=== PATIENT | male | born 1950 | race Caucasian/White ===

== ENCOUNTER 2024-09-25 10:46 | Emergency (ER) | payer MEDICARE, SELFPAY ==
--- NOTE | ~2024-09-25 | CT_ITS ---
EXAMINATION: CT ABDOMEN PELVIS WITH IV CONTRAST HISTORY: LLQ pain COMPARISON: Comparison is made with the prior examination dated 03/02/2017. TECHNIQUE: CT scan of the abdomen and pelvis was performed following administration of 85 mL Omnipaque 350 using standard departmental protocol. Coronal and sagittal reformatted images were generated and reviewed. Oral contrast material was not administered at the request of the referring physician. This CT exam was performed with one or more of the following dose reduction techniques: automated exposure control, adjustment of the mA and/or kV according to patient size, use of iterative reconstruction technique. DLP: 463 mGy-cm FINDINGS: LOWER CHEST: The visualized lung bases are clear. There is no pleural effusion. CARDIOVASCULATURE: The heart is normal in size. There is no pericardial effusion. LIVER: The liver is normal in size and contour. Again seen are cysts within the liver measuring up to 1.6 cm in size. The hepatic and portal veins are patent. GALLBLADDER / BILE DUCTS: The gallbladder is unremarkable. There is no intra or extrahepatic biliary ductal dilatation. SPLEEN: The spleen is normal in size. No focal splenic lesion is identified. PANCREAS: The pancreas is unremarkable in appearance. ADRENAL GLANDS: Within normal limits. KIDNEYS/RETROPERITONEUM: No renal calculi are identified. There is no hydronephrosis. There are bilateral renal cysts measuring up to 2.9 cm on the right and 5.0 cm on the left. LYMPH NODES: No abdominal or pelvic lymphadenopathy. VASCULATURE: The abdominal aorta demonstrates atherosclerotic calcification, but is normal in caliber. MESENTERY/PERITONEUM: No free fluid. No masses. There is no free intraperitoneal gas. STOMACH: The stomach is collapsed, limiting evaluation. SMALL BOWEL: The small bowel is normal in caliber. COLON: There is diverticulosis of the descending and sigmoid colon. Minimal stranding of the fat adjacent to the mid descending colon is noted (series 3, images 42-43) which is suggestive of diverticulitis. There is no adjacent fluid collection or extraluminal gas. There are foci of fat attenuation adjacent to the descending colon which appear encapsulated, and may represent areas of fat necrosis. APPENDIX: The appendix is surgically absent. URINARY BLADDER/PELVIC ORGANS: The urinary bladder is unremarkable. The prostate is enlarged. BONES / SOFT TISSUES: There are scattered sclerotic foci in the right femur, right iliac bone, T10 vertebral body and sacrum without change. CT/CT abdomen pelvis w IV con IMPRESSION: Findings consistent with mild diverticulitis involving the descending colon as described. Electronically signed by: Juan Dunn MD 09/25/2024 02:46 PM EDT RP
[2024-09-25 11:11] VITALS: BP 175/79; PULSE 108; RESP 20; TEMP 36.8; O2SAT 94; BMI 26.8
--- NOTE | 2024-09-25 11:15 | ED_ITS ---
HPI - General Adult General Chief complaint: Abdominal Pain Stated complaint: Diverticulitis Time Seen by Provider: 09/25/24 12:53 Source: patient and old records reviewed Mode of arrival: ambulatory Limitations: no limitations History of Present Illness ED Provider: AVA TIERNEY narrative: 74 yo male with PMH of uncomplicated diverticulitis, HLD, renal cell carcinoma s/p surgery and XRT here with c/o 2 days of LLQ pain but no n/v/d fevers and no blood stools. He feels he has diverticulitis again. He could not get into his PCP. He responds well to augmentin. MD complaint: abd pain Onset (ago): day(s) (2) Location: abdomen Radiation: non-radiation Severity: moderate Quality: aching Pain Consistency: intermittent Relieving factors: none Exacerbating factors: movement Associated symptoms: denies other symptoms Treatments prior to arrival: none Related Data Previous Rx's ?Medication ?Instructions ?Recorded amoxicillin 500 mg-potassium 1 tab PO BID #19 tabs 09/25/24 clavulanate 125 mg tablet (Augmentin) Allergies Allergy/AdvReac Type Severity Reaction Status Date / Time No Known Allergies Allergy Verified 09/25/24 11:13 [No Known Allergies*] Review of Systems 2 Review of Systems: Constitutional : No Weight loss, No Fever, No Chills ENT/Mouth : No sore throat, No Rhinorrhea Eyes: No Swelling, No Redness Cardiovascular : No Chest Pain, No SOB, No Edema Respiratory : No Cough, No Sputum, No Wheezing Gastrointestinal : no Nausea, no Vomiting, no Diarrhea, positive abdominal Pain, No Hematochezia, No Melena Genitourinary : No Dysuria, No Urinary Frequency, No Hematuria, No Urgency Musculoskeletal : No joint pain, No Myalgias, No Joint Swelling Skin : No Skin Lesions, No rash Neuro : No Weakness, No Numbness, No Dizziness, No Headache All other systems reviewed and are negative. [facility] Past Medical History Attestation statement: The following information was validated with the patient. Source: old records reviewed Medical History (Updated 09/25/24 @ 14:58 by Paige Mederos DO) Renal cell carcinoma Diverticulitis HLD (hyperlipidemia) Social History Social History (Updated 09/25/24 @ 13:15 by Paige Mederos DO) Patient Tobacco Use Status: Tobacco use Unknown Physical Exam ED Vital Signs: Vital Signs - 24 hr 09/25/24 11:11 09/25/24 15:15 Temperature 98.3 F 98.3 F Pulse Rate 108 H 79 Respiratory Rate 20 16 Blood Pressure 175/79 H 150/79 H Pulse Oximetry 94 98 Oxygen Delivery Method Room Air Room Air BMI result Body Mass Index 26.8 Appearance: Alert. Oriented X3. No acute distress. Eyes: Pupils equal, round and reactive to light. ENT: Pharynx normal. Neck: Normal inspection. Neck supple. CVS: Normal heart rate and rhythm. Pulses normal. Respiratory: No respiratory distress. Breath sounds normal. Abdomen: Soft and very mild ttp in LLQ no rebound or guarding Skin: Skin warm and dry. Normal skin color. Normal skin turgor. Extremities: No lower extremity edema. No calf ttp Neuro: Oriented X 3. No motor deficit. No sensory deficit. CN2-12 intact Course Course Course Narrative: RME: 74-year-old male history of high cholesterol and diverticulitis presents to ED for left-sided mid lower abdominal pain with tenderness on palpation. Patient has been treated with Augmentin before for the past for diverticulitis. Patient was sent by primary care provider to be evaluated in the ED. Patient denies any blood in stool fever or chills. Patient denies any chest pain or shortness of breath. Patient has tachy hypertensive probably due to pain but we will do EKG cardiac labs. Medications Administered Discontinued Medications Generic Name Dose Route Start Last Admin Trade Name Freq PRN Reason Stop Dose Admin Amoxicillin/Clavulanate Potassium 500 mg 09/25/24 14:56 09/25/24 15:15 Amoxicillin/Potassium Clav 500 Mg Tablet PO 09/25/24 14:57 500 mg ONCE ONE Administration Lactated Ringer's 1,000 mls @ 999 mls/hr 09/25/24 13:18 09/25/24 15:07 Lr IV 09/25/24 14:18 Infused .Q1H1M ONE Infusion Iohexol 100 ml 09/25/24 14:10 09/25/24 14:10 Iohexol 350 Mg/Ml 100 Ml Infus..Btl IV 09/25/24 14:11 85 ml ONCE ONE Administration Medical Decision Making Medical Decision Making MDM Narrative: 74 yo male with PMH of uncomplicated diverticulitis, HLD, renal cell carcinoma s/p surgery and XRT here with with c/o LLQ pain but no fevers, chills, n/v/d, GIB symptoms, dysuria - at this time given his age and HR slightly elevated though he blames that on hospital anxiety I am going to obtain CT scan to rule out any complications from diverticular disease. Possible constipation/renal colic/mass as well. Differential Diagnosis Differential Diagnoses: The differential diagnosis associated with the presentation includes constipation, diverticular disease, renal colic Admission/Observation Consideration of admission/observation: Escalation of care including admission/observation considered labs reassuring no severe pain can be managed as outpatient with oral abx Lab Data MDM Lab Attestation statement: I reviewed the patient's lab results. 09/25/24 11:27 09/25/24 11:27 Labs: Lab Results 09/25/24 09/25/24 Range/Units 11:27 11:31 WBC 5.0 (4.8-10.8) X10*3/uL RBC 4.04 L (4.60-5.80) X10*6/uL Hgb 12.9 L (14.0-18.0) g/dl Hct 37.5 L (42.0-52.0) % MCV 92.8 (80.0-98.0) fL MCH 31.9 (27.0-33.0) pg MCHC 34.4 (31.0-36.0) g/dl RDW 13.1 (11.0-16.0) % Plt Count 137 L (160-400) X10*3/uL MPV 11.1 (9.4-12.4) fL Immature Gran % (Auto) 0.2 (0.0-0.4) % Neut % (Auto) 78.0 H (45-73) % Lymph % (Auto) 11.6 L (20-40) % [place] % (Auto) 8.0 (2-11) % Eos % (Auto) 2.0 (0-4) % Baso % (Auto) 0.2 (0-2) % Lymph # (Auto) 0.6 L (1.2-4.9) X10*3/uL [place] # (Auto) 0.4 (0.1-1.2) X10*3/uL Eos # (Auto) 0.1 (0.0-0.4) X10*3/uL Baso # (Auto) 0.0 (0.0-0.2) X10*3/uL Abs Immat Gran (auto) 0.01 (0.00-0.03) X10*3/uL Absolute Neuts (auto) 3.9 (2.0-8.3) x10*3/uL Absolute Nucleated RBC 0.000 (0.0-0.012) X10*3/uL Nucleated RBC % (auto) 0.0 (0.0-0.2) /100WBC PT 11.5 (10.9-12.4) SEC INR 1.0 (0.9-1.1) APTT 29.9 (26.0-36.8) SEC Sodium 141 (135-145) mmol/L Potassium 4.6 (3.3-5.1) mmol/L Chloride 108 (96-108) mmol/L Carbon Dioxide 26 (22-29) mmol/L Anion Gap 12 (12-20) BUN 24 H (9-16) mg/dL Creatinine 1.19 (0.5-1.4) mg/dL Estim Creat Clear Calc 47.3 Estimated GFR 60 Random Glucose 153 H (60-115) mg/dL Calcium 10.1 (8.4-10.2) mg/dL Total Bilirubin 0.5 (0.0-1.0) mg/dL AST 24 (5-37) U/L ALT 34 (0-40) U/L Alkaline Phosphatase 104 (39-117) U/L Troponin I High Sens 6.2 (<3.5-35.0) ng/L Total Protein 6.6 (6.5-8.0) g/dL Albumin 4.2 (3.5-5.0) g/dL Urine Color Yellow Urine Appearance Clear Urine pH 6.0 (5.0-9.0) Ur Specific [place] 1.010 (1.005-1.025) Urine Protein Trace (Neg-Trace) mg/dL Urine Glucose (UA) Negative (Negative) mg/dL Urine Ketones Negative (Negative) mg/dL Urine Blood Negative (Negative) Urine Nitrite Negative (Negative) Ur Leukocyte Esterase Trace H (Negative) Urine RBC 0-2 (0-2) /HPF Urine WBC 0-5 (0-5) /HPF Ur Squamous Epith Cells 0-2 (0-2) /HPF Urine Bacteria None Seen (None Seen) Hyaline Casts 0-2 (0-2) /LPF Independent Interpretation I performed an independent interpretation of an: EKG and CT Scan (uncomplicated diverticulitis) Interpretation: Rate: 99 Rhythm: NSR [place]: normal Normal P waves. Normal CHRIS. Normal QRS complex. ST T wave : inverted t waves III and avF , no HARRIET qTC: 431 prior studies: no prior The study has been interpreted contemporaneously by me. . Radiology Impression Discussion of test interpretation with radiology: I have reviewed the radiologist's reading. Prescription Management I considered prescription management with: Antibiotic Discharge Plan Discharge Clinical Impression: Diverticulitis Patient Disposition: Home, Self-Care Instructions: Diverticulitis (ED), Diverticulitis Diet (ED) Additional Instructions: hemoglobin 12.9, platelets 144 - repeat labs next week with your doctor return for fevers, vomiting, bloody stools, unable to eat or drink or any other concerns On amoxicillin-clavulanate, softer bowel movements are to be expected. Call your provider if you move your bowels more than 4 times a day, your bowel movements are almost all liquid, or you get a rash.? COLON: There is diverticulosis of the descending and sigmoid colon. Minimal stranding of the fat adjacent to the mid descending colon is noted (series 3, images 42-43) which is suggestive of diverticulitis. There is no adjacent fluid collection or extraluminal gas. There are foci of fat attenuation adjacent to the descending colon which appear encapsulated, and may represent areas of fat necrosis. APPENDIX: The appendix is surgically absent. URINARY BLADDER/PELVIC ORGANS: The urinary bladder is unremarkable. The prostate is enlarged. BONES / SOFT TISSUES: There are scattered sclerotic foci in the right femur, right iliac bone, T10 vertebral body and sacrum without change. CT/CT abdomen pelvis w IV con IMPRESSION: Findings consistent with mild diverticulitis involving the descending colon as described. Prescriptions: New amoxicillin-pot clavulanate [Augmentin] 500-125 mg tablet 1 tab PO BID Qty: 19 0RF Interventions: ED Discharge Assessment Last Done: 09/25/24 15:15 Discharge Date/Time: 09/25/24 15:18 Print Language: Solomon Islander
--- NOTE | 2024-09-25 11:15 | ECG_ITS ---
Test Reason : ABD CALDERÓN Blood Pressure : */* mmHG Vent. Rate : 99 BPM Atrial Rate : 99 BPM P-R Int : 194 ms QRS Dur : 82 ms QT Int : 336 ms P-R-T Axes : 30 -1 -7 degrees QTcB Int : 431 ms Normal sinus rhythm Inferior infarct , age undetermined Abnormal ECG No previous ECGs available Referred By: Abram Ely Electronically Signed By: ABELARDO HARRIS MD
[2024-09-25 11:37] LABS: MANUAL DIFF FLAG NO
[2024-09-25 11:41] LABS: Basophils Percent Auto 0.2 % (0-2); Eosinophils Absolute Auto 0.1 X10*3/uL (0.0-0.4); Hematocrit 37.5 % (42.0-52.0); Hemoglobin 12.9 g/dl (14.0-18.0); Imm Gran Abs Auto 0.01 X10*3/uL (0.00-0.03); Imm Gran Pct Auto 0.2 % (0.0-0.4); Lymphocytes Absolute Auto 0.6 X10*3/uL (1.2-4.9); Lymphocytes Percent Auto 11.6 % (20-40); Mean Corpuscular HGB Conc 34.4 g/dl (31.0-36.0); Mean Corpuscular Hemoglobin 31.9 pg (27.0-33.0); Mean Corpuscular Volume 92.8 fL (80.0-98.0); Mean Platelet Volume 11.1 fL (9.4-12.4); Monocytes Absolute Auto 0.4 X10*3/uL (0.1-1.2); Neutrophils Absolute Auto 3.9 x10*3/uL (2.0-8.3); Platelet Count 137 X10*3/uL (160-400); Red Blood Count 4.04 X10*6/uL (4.60-5.80); Red Cell Distribution Width 13.1 % (11.0-16.0)
[2024-09-25 11:46] LABS: Appearance Urine Clear; Color Urine Yellow; Glucose Urine UA Negative (Negative); Leukocyte Esterase Urine Trace (Negative); Nitrite Urine Negative (Negative); UMIC TRIGGER UACC YES; Urine Blood Negative (Negative); Urine Ketones Negative (Negative); Urine Protein Trace mg/dL (Neg-Trace)
[2024-09-25 11:49] LABS: Prothrombin Time 11.5 SEC (10.9-12.4)
[2024-09-25 11:51] LABS: Bacteria Urine None Seen (None Seen); Hyaline Casts Urine 0-2 /LPF (0-2); RBC Urine 0-2 /HPF (0-2); Squamous Epithelial Cell Urine 0-2 /HPF (0-2); WBC Urine 0-5 /HPF (0-5)
[2024-09-25 11:52] LABS: Partial Thromboplastin Time 29.9 SEC (26.0-36.8)
[2024-09-25 11:55] LABS: Alanine Aminotransferase 34 U/L (0-40); Albumin Level 4.2 g/dL (3.5-5.0); Alkaline Phosphatase 104 U/L (39-117); Anion Gap 12 (12-20); Aspartate Amino Transferase 24 U/L (5-37); Bilirubin Total 0.5 mg/dL (0.0-1.0); Blood Urea Nitrogen 24 mg/dL (9-16); Calcium 10.1 mg/dL (8.4-10.2); Carbon Dioxide 26 mmol/L (22-29); Chloride 108 mmol/L (96-108); Creatinine Clr Calc Pharmacy 47.3; Estimated Glomerular Filt Rate 60; Glucose Random 153 mg/dL (60-115); Potassium 4.6 mmol/L (3.3-5.1); Sodium 141 mmol/L (135-145); Total Protein 6.6 g/dL (6.5-8.0)
[2024-09-25 11:58] LABS: Troponin-I High Sensitivity 6.2 ng/L (<3.5-35.0)
--- OUTSIDE RECORDS SUMMARY | 2024-09-25 12:30 | XMS_ITS | Clinical Summary ---
Author Organization [address] Address [address] [place], [place] [address]y EDMOND Felix Phone Care Team Providers Care Thresher Broomcorn Name Role Phone Tessy Vasquez MD Primary Care Provider [phone] Allergies No known active allergies Medications tamsulosin HCl (TAMSULOSIN ORAL) Take by mouth. Active mv-min/folic/K1/ lycopen/lutein (CENTRUM SILVER ULTRA MEN'S ORAL) Take by mouth. 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 Baeza Lung mass 03/31/2021 Overview (03/31/2024): Very unclear picture, mentioned and communicated through note by patient's urologist Dr. Singh, see note 03/31/21 Left renal mass 02/15/2018 Overview (03/31/2024): Last Assessment & Plan: S/p nephrology Pulmonary nodules 02/15/2018 Overview (03/31/2024): January 2018: No further screening indicated Diverticulitis large intestine 04/24/2017 Overview (03/31/2024): [facility]. Ventral hernia 02/16/2016 CAD (coronary artery disease) 07/16/2014 Overview (03/31/2024): nonobstructive CAD with cardiac cath in 10/27/2007 (performed for abn NST pre- op). 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 Jauregui, 07/2013 CKD (chronic kidney disease) stage 3, GFR 30-59 ml/min (CMS/HCC V24, CMS/HCC V28) 02/06/2013 Overview (03/31/2024): Consult note 05/13/2012 [facility] Nephrology. Diverticulosis 02/06/2013 Overview (03/31/2024): Consult Dr. Venancio Gibson 11/05/2011. Abnormal cardiovascular stress test 11/11/2007 Overview (03/31/2024): Cath showed nonobstructive disease see cardiology note Dyslipidemia 11/11/2007 HTN (hypertension) 11/11/2007 Nephrotic syndrome 11/11/2007 Overview (03/31/2024): Used to follow with Dr. Jauregui Encounters Date Type Department Care Team Description 09/25/2024 Telephone Adult Medicine [address] [id number] Tessy Vasquez MD Referral from Last 3 Months Immunizations Name Administration Dates Next Due COVID-19 (Pfizer/Comirnaty) 12yo and older 01/14/2023 Influenza Quadravalent, MDCK , 0.5ml, with preservative (Flucelvax) 6mo and older 04/24/2017 Influenza trivalent, 0.5mL ( Fluad) 65yo and older 01/14/2023,01/12/2022,01/31/2020,01/22,02/28/2018 Influenza trivalent, 0.5mL, preservative free (Fluarix; FluLaval; Fluzone) ages 6mo and older (Afluria) 3 years and older 02/16/2016,01/05/2013,05/08/2012,03/09 Influenza, Unspecified 01/07/2021,02/03/2015,09/2013 Pfizer SARS-CoV-2 COVID-19, mRNA, LNP-S, preservative free 01/12/2022 Pneumococcal conjugate 13 va lent (Prevnar 13, PCV13) 2mo and older 01/31/2020 Pneumococcal polysaccharide 23 valent (Pneumovax 23) 2yo and older 01/14/2022,07/16/2014 RSV, bivalent, protein subun it RSVpreF, 0.5mL, Preservative Free (Arexvy) 60yo and older 03/22/2023 Tdap Tetanus diptheria acell ular pertussis (Boostrix; Adacel) 7yo and older 01/05/2013 Zoster recombinant (Shingrix ) 19yo and older 05/27/2020,02/18/2020 Surgical History Surgery Date Site/Laterality Comments OTHER SURGICAL HISTORY PROCEDURE: ND RENAL BIOPSY SURG EXPOSURE KIDNEY OTHER SURGICAL HISTORY 02/02/2021 PROCEDURE: HISTORY OTHER; COMMENT: exploraotry lap and retroperitoneal lymph node dissection Dr. Cardoso NEPHRECTOMY 07/15/2018 Left PROCEDURE: HISTORICAL NEPHRECTOMY; COMMENT: left robotic partial nephrectomy Dr. 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 Jauregui, 07/2013 Hyperglycemia 07/16/2014 DX:Hyperglycemia CAD (coronary artery disease) 07/16/2014 DX :CAD (coronary artery disease); COMMENT: nonobstructive CAD with cardiac cath in 10/27/2007 (performed for abn NST pre-op). Follows with cardiology Ventral hernia 02/16/2016 DX:Ventral herni a Diverticulitis large intestine 04/24/2017 D X:Diverticulitis large intestine Nephrotic syndrome 11/11/2007 DX:Nephrotic syndrome; COMMENT: Used to follow with Dr. 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 Dyslipidemia 11/11/2007 DX:Dyslipidemia HTN (hypertension) 11/11/2007 DX:HTN (hyper tension) Left renal mass 02/15/2018 DX:Left renal ma ss Lung mass 03/31/2021 DX:Lung mass; CO MMENT: Very unclear picture, mentioned and communicated through note by patient's urologist Dr. Singh, see note 03/31/21 Prediabetes 07/16/2014 DX:Prediabetes Pulmonary nodules 02/15/2018 DX:Pulmonary n odules; COMMENT: January 2018: No further screening indicated Family History Medical History Relation Name Comments Bladder Cancer Brother Other: dementia Father Other: clogged arteries , no details Mother Stroke Mother Relation Name Status Comments Brother Alive Father Mother Sister Alive Social History Tobacco Use Types Packs/Day Years Used Date Smoking Tobacco: Never Smokeless Tobacco: Never Alcohol Use Standard Drinks/Week Comments No 0 (1 standard drink = 0.6 oz pur e alcohol) Housing Instability Answer Date Recorde d Are you worried that in the next 2 months you may not have stable housing? No 06/09/2024 Food Access & Nutrition Answer Date Rec orded Do you have access to a vari ety of food including fruits and vegetables? Yes 06/09/2024 Access to Healthcare Answer Date Record ed Within the last 3 months, ho w many times did you visit the emergency department for your medical care? 0 06/09/2024 Health Literacy Answer Date Recorded How often do you need to hav e someone help you when you read instructions, pamphlets, or other written material from your doctor or pharmacy? Never 06/09/2024 Caregiver: How often do you need to have someone help you when you read instructions, pamphlets, or other written material from your doctor or pharmacy? Not on file 06/09/2024 Financial Risk Answer Date Recorded How hard is it for you to pa y for the very basics like food, housing, medical care, and air conditioning / heating? Not very hard 06/09/2024 Transportation Answer Date Recorded Has the lack of transportati on kept you from meetings, work, or from getting things needed for daily living? No Has the lack of transportati on kept you from medical appointments or from getting medications? No 06/09/2024 Social Isolation Answer Date Recorded How often do you feel lonely or isolated from th ose around you? Never 06/09/2024 Food Risk Answer Date Recorded Within the past 12 months we worried whether our food would run out before we got money to buy more. Never true 06/09/2024 Within the past 12 months th e food we bought just didn't last and we didn't have money to get more. Never true 06/09/2024 Dependent Care Answer Date Recorded Do you need help finding or paying for care for your loved ones. For example, children's entertainer or elderly care for an older adult? No 06/09/2024 Education Answer Date Recorded Do you think completing more education or training, like finishing a GED, going to college, or learning a trade, would be helpful for you? Patient declined 06/09/2024 Employment and Income Answer Date Recor ded During the last four weeks, have you been actively looking for work? No 06/09/2024 Living Situation Answer Date Recorded What is your living situation? 0 06/09/2024 Sex and Gender Information Value Date Recorded Sex Assigned at Not on file Legal Sex Male 3:04 PM EST Gender Identity Not on file Sexual Orientation Not on file Obstetrics History Last Filed Vital Signs Vital Sign Reading Time Taken Comments Blood Pressure 142/80 06/10/2024 8:49 AM EST Pulse 82 06/10/2024 8:49 AM EST Temperature 36 ??C (96.8 ??F) 06/10/2024 8:49 AM EST Respiratory Rate 20 06/10/2024 8:49 AM EST Oxygen Saturation - - Inhaled Oxygen Concentration - - Weight 74.8 kg (165 lb) 06/10/2024 8:49 AM EST Height 160 cm (5' 3 ) 06/10/2024 8:49 AM EST Body Mass Index 29.23 06/10/2024 8:49 AM EST Plan of Treatment Upcoming Encounters Date Type Department Care Team (Late st Contact Info) Description 12/24/2024 8:30 AM EDT Office Visit Adult Medicine [facility] [place] [address] [place] [address] Tessy Vasquez MD [address] [place] [address] Health Maintenance Due Date Last Done Comments COVID-19 Vaccine (8 - Pfizer risk 2023- season) 2024 01/15/2024, 01/14/2023, 01/12/2022, Additional history exists Medicare Annual Wellness Visit 12/30/2024 12/31/2023 Hypertension/CHF/CAD Annual BMP Blood Test 12/31/2024 01/01/2024, 01/06/2021 Depression Screening 06/09/2025 06/09/2024, 12/31/19 Social Influencers of Health Screening 06/09/2025 06/09/2024 Falls Risk Assessment 06/10/2025 06/10/2024 Cholesterol Screening (Lipid Panel) 12/31/2028 01/01/2024, 01/01/2024 Colorectal Cancer Screening: Colonoscopy 06/13/2032 06/13/2022 DTaP,Tdap,and Td Vaccines (3 - Td or Tdap) 01/14/2034 01/15/2024, 01/05/2013 Hepatitis C Screening Completed 06/18/2013 Zoster Vaccines Completed 05/27/2020, 02/18/2020 Pneumococcal Vaccine: 50+ Years Completed 01/14/2022, 01/31/2020, 07/16/2014 RSV Immunization Adult Patients Completed 03/22/2023 Influenza Vaccine Completed 01/15/2024, , 01/12/2022, Additional history exists HIB Vaccines Aged Out No longer eligi ble based on patient's age to complete this topic HPV Vaccines Aged Out No longer eligi ble based on patient's age to complete this topic Hepatitis A Vaccines Aged Out No long er eligible based on patient's age to complete this topic Hepatitis B Vaccines Aged Out No long er eligible based on patient's age to complete this topic IPV Vaccines Aged Out No longer eligi ble based on patient's age to complete this topic MMR Vaccines Aged Out No longer eligi ble based on patient's age to complete this topic Meningococcal ACWY Vaccine Aged Out N o longer eligible based on patient's age to complete this topic Meningococcal B Vaccine Aged Out No l onger eligible based on patient's age to complete this topic RSV Immunization Patients Under 20 months Aged Out No longer eligible based on patient's age to complete this topic Varicella Vaccines Aged Out No longer eligible based on patient's age to complete this topic Procedures Procedure Name Priority Date/Time Associated Diagnosis Comments ANNUAL BMP BLOOD TEST Routine 01/01/2024 LIPID PANEL Routine 01/01/2024 DEPRESSION SCREENING Routine 12/31/2023 COLONOSCOPY Routine 06/13/2022 HEPATITIS C SCREENING Routine 06/18/2013 from Last 3 Months or Most Recently Relevant to Health Maintenance Results * Annual BMP Blood Test (01/01/2024) Pathologist [facility] Annual BMP Blood Test Abstracted Historical Provider HEALTH MAINTENANCE Final Result * Lipid panel (01/01/2024) [facility] LDL/HDL Ratio 3 0 - 4 Triglycerides 98 0 - 150 mg/dL Cholesterol 129 0 - 200 mg/dL HDL 44 >=40 mg/dL LDL Cholesterol 66 0 - 100 mg/dL Blood Venous blood specimen / Unknown Historical Provider LAB BLOOD ORDERABLES Hannah l Result * Depression Screening (12/31/2023) Pathologist [facility] Depression Screening Abstracted Historical Provider HEALTH MAINTENANCE Final Result * Colonoscopy (06/13/2022) Colonoscopy Abstracted. No Interpretation Anatomical Region Laterality Modality Other Historical Provider HEALTH MAINTENANCE Final Result * Hepatitis C Screening (06/18/2013) Hepatitis C Screening Abstracted [facility] Provider HEALTH MAINTENANCE Final Result from Last 3 Months or Most Recently Relevant to Health Maintenance Insurance MEDICARE [facility] Care Teams Thresher Broomcorn Relationship Specialty Start Date End Date Tessy Vasquez MD [address] [place] [address] PCP - General Internal Medicine 07/04/12
[2024-09-25] MEDS: Lactated Ringers 1,000 ML 999 ML IV (13:41)
[2024-09-25] MEDS: iohexoL 350 MG/ML 100 ML INFUS..BTL IV (14:10)
[2024-09-25 15:15] VITALS: BP 150/79; PULSE 79; RESP 16; TEMP 36.8; O2SAT 98
[2024-09-25] MEDS: Amoxicillin/Potassium Clav 500 MG TABLET PO (15:15)
== END 2024-09-25 15:18 | disposition home or self-care (01) ==
PROVIDERS: Physician Assistant; Emergency Provider Emergency Medicine; PCP Internal Medicine
DX: K57.92 Diverticulitis of intestine, part unspecified, without perforation or abscess without bleeding (principal); R10.32 Left lower quadrant pain
CPT/HCPCS: 36415; 74177; 80053; 81001; 84484; 85025; 85610; 85730; 93005; 96360; 99284; 99285; J7120; Q9967

== ENCOUNTER → 2024-09-25 11:15 | Outpatient (BNV) | payer MEDICARE, SELFPAY | PROVIDERS: Emergency Provider Emergency Medicine; PCP Internal Medicine; Visit Provider Internal Medicine Cardiovascular Disease | DX: R94.31 Abnormal electrocardiogram [ECG] [EKG] (principal); R10.9 Unspecified abdominal pain | CPT/HCPCS: 93010 ==

== ENCOUNTER → 2024-09-25 13:00 | Outpatient (BNV) | payer MEDICARE, SELFPAY | PROVIDERS: Emergency Provider Emergency Medicine; PCP Internal Medicine; Visit Provider Radiology Diagnostic Radiology | DX: R10.32 Left lower quadrant pain (principal) | CPT/HCPCS: 74177 ==